=== PATIENT | female | born 1965 | race African-American/Black ===

== ENCOUNTER 2018-04-12 16:03 | Emergency (ER) | payer MEDICAID ==
[~2018-04-12] VITALS: Ht 157.5 cm; Wt 86.2 kg
[2018-04-12 18:18] LABS: *BILIRUBIN,URIN NEGATIVE (NEGATIVE); *BLOOD, URINE Trace-intact (NEGATIVE); *CLARITY,URINE CLEAR (CLEAR); *COLOR,URINE YELLOW (YELLOW); *KETONES,URINE NEGATIVE (NEGATIVE); *PROTEIN,URINE NEGATIVE (NEGATIVE); LEUKOCYTE ESTERASE ,URINE NEGATIVE (NEGATIVE); NITRITE, URINE NEGATIVE (NEGATIVE); PH,URINE 5.5 (5.0-8.0); UGLUCOSE NEGATIVE (NEGATIVE)
[2018-04-12 18:19] LABS: *URINE HCG, QUAL NEGATIVE (NEGATIVE)
[2018-04-12 18:20] LABS: BACTERIA,URINE FEW /HPF (NONE SEEN); RBC,URINE 0-3 /HPF (0-3); SQUAMOUS EPITHELIAL CELL,UR FEW /HPF (NONE SEEN)
--- NOTE | 2018-04-12 19:30 | NUR ---
Report received from Abbie TEE. Awaiting for lab results.
[2018-04-12 21:05] VITALS: BP 118/74
--- NOTE | 2018-04-12 21:06 | NUR ---
Patient discharged to home in stable conditon. Written and verbal after care instructions given. Patient verbalizes understanding of instructions.
== END 2018-04-12 21:09 | disposition home or self-care (01) ==
LOC: ER 16:05
DX: R35.0 Frequency of micturition (principal); I83.12 Varicose veins of left lower extremity with inflammation; I83.11 Varicose veins of right lower extremity with inflammation
CPT/HCPCS: 84703; 87077; 87086; A4663